=== PATIENT | male | born 1990 | race Two or more races ===

== ENCOUNTER 2018-01-14 09:21 | Emergency (ER) | payer SELFPAY ==
[~2018-01-14] VITALS: Ht 180.3 cm; Wt 90.7 kg
[2018-01-14 09:55] VITALS: BP 119/71
== END 2018-01-14 10:19 | disposition home or self-care (01) ==
LOC: ER 09:21
DX: K08.89 Other specified disorders of teeth and supporting structures (principal); L03.211 Cellulitis of face